=== PATIENT | female | born 1940 | race Caucasian/White ===

== ENCOUNTER 2022-11-29 10:04 | Inpatient (IN) ==
--- NOTE | 2022-11-29 10:16 | Emergency Department Note ---
HPI General Chief complaint: Abdominal Pain Stated complaint: abdominal pain Time Seen by Provider: 11/29/22 10:16 Source: EMS Mode of arrival: EMS Limitations: no limitations History of Present Illness HPI Narrative: Narrative: Patient is an 82-year-old female with a complex history who presents to the emergency department due to lower abdominal pain. She states that she recently had a lithotripsy performed by Dr. Sage. Today she began to develop more severe lower abdominal pain. She states that it feels like a dull ache. She denies any radiation of the pain. She denies palliative or provocative factors. She states that she feels unwell overall, but has difficulty describing what that means. She denies any other symptoms at this time. Related Data Home Medications Medication Instructions Recorded Confirmed levothyroxine 88 mcg capsule 88 mcg PO QDAY 05/09/22 11/23/22 aspirin 81 mg tablet,delayed 81 mg PO QDAY 11/23/22 11/23/22 release calcium 500 mg tablet 500 mg PO QDAY 11/23/22 11/23/22 Previous Rx's Medication Instructions Recorded lisinopril 30 mg tablet 30 mg PO DAILY #90 tabs 12/05/21 cpap machine with supplies #1 ea 06/22/22 venlafaxine 225 mg tablet,extended 225 mg PO QDAY #90 tabs 06/26/22 release 24 hr trazodone 50 mg tablet 50 mg PO QHS #90 tabs 09/25/22 meloxicam 15 mg tablet 15 mg PO QDAY #90 tabs 10/25/22 nitrofurantoin 100 mg PO Q12H 7 days #14 caps 11/27/22 monohydrate/macrocrystals 100 mg capsule (Macrobid) tramadol 50 mg tablet 75 mg PO Q6H PRN pain #20 tabs 11/27/22 simvastatin 20 mg tablet 20 mg PO HS #90 tabs 11/28/22 Allergies Allergy/AdvReac Type Severity Reaction Status Date / Time No Known Drug Allergies Allergy Verified 11/29/22 10:12 Review of Systems ROS ROS Narrative: Narrative: Constitutional: Reports other (General malaise); Denies fever or weakness Eyes: Denies eye pain or vision change ENT ED: Denies throat pain or rhinorrhea Cardiovascular: Denies chest pain, dyspnea on exertion, orthopnea or edema Respiratory: Denies shortness of breath or cough Gastrointestinal: Reports abdominal pain; Denies nausea, vomiting, diarrhea, constipation, hematochezia or melena Musculoskeletal: Denies back pain or myalgia Integumentary: Denies rash or lesions Neurological: Denies headache, weakness, numbness, confusion, abnormal gait or dizziness Endocrine: Denies fatigue or polyuria [facility] Narrative Patient History Narrative: Narrative: Medical/Surgical/Family History All Active Problems (Updated 11/29/22 @ 20:12 by Henry Flores MD) Sepsis secondary to UTI (Acute) Clinical sepsis (Acute) Stage 2 acute kidney injury (Acute) Obstructive sleep apnea on CPAP (Acute) Thoracic radiculopathy (Chronic) Lumbar spondylosis (Chronic) Hypothyroidism (Chronic) Degenerative joint disease (Chronic) Hypertension (Chronic) Esophageal reflux (Chronic) Hypercholesterolemia (Chronic) Essential tremor (Chronic) Type II diabetes mellitus (Chronic) History of surgery (Chronic) Hip bursitis, left (Chronic) Chronic left hip pain (Chronic) Asthma (Chronic) History of herniorrhaphy (Chronic) History of carpal tunnel release (Chronic) History of shoulder surgery (Chronic) Osteopenia (Chronic) Osteoarthritis involving multiple joints on both sides of body (Chronic) Diarrhea (Chronic) Skin lesion of left upper extremity (Chronic) Chronic kidney disease, stage 3 (Chronic) Calcaneal spur of right foot (Chronic) Obesity (Chronic) Other intervertebral disc degeneration, lumbar region (Chronic) Insomnia (Chronic) RODRÍGUEZ (obstructive sleep apnea) (Chronic) Depression, major, recurrent, moderate (Chronic) Adenomatous colon polyp (Chronic) History of colonoscopy (Chronic ~06/24/15) Diverticulosis (Chronic) Shingles (Chronic ~2015) History of repair of hiatal hernia (Chronic) S/P ERCP (Chronic) History of rectal sphincterotomy (Chronic) Radiculopathy of lumbar region (Chronic) PAC (premature atrial contraction) (Chronic) Polyarthralgia (Chronic) Radiculopathy of lumbar region (Acute) Spinal stenosis, lumbar region with neurogenic claudication (Chronic) Strain of cervical portion of right trapezius muscle (Acute) Muscle spasms of neck (Acute) Musculoskeletal back pain (Acute) 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) Left knee pain (Chronic) Myofascial pain (Acute) Flu vaccine need (Acute) Medicare annual wellness visit, initial (Acute) Chest pain (Chronic) Shoulder pain, bilateral (Acute) Lumbar back pain (Chronic) Increased skin sensation (Acute) Skin lesions (Acute) UTI (urinary tract infection) (Acute) Sleep apnea (Chronic) Heart murmur (Acute) Dizzy spells (Acute) Hematuria (Acute) Kidney stone (Acute) Medical History Adenomatous colon polyp Asthma Bursitis of right knee Calcaneal spur of right foot Chest pain Chronic kidney disease, stage 3 Chronic left hip pain Degenerative joint disease Degenerative joint disease of left knee Depression, major, recurrent, moderate Diarrhea 2/2 Coffee intake. Clears when she does not drink every morning Diverticulosis Dizzy spells Esophageal reflux Essential tremor Flu vaccine need Hematuria Hip bursitis, left Hypercholesterolemia Hypertension Hypothyroidism Increased skin sensation Groin Insomnia Left knee pain Lumbar back pain Lumbar spondylosis Medicare annual wellness visit, initial Medicare welcome visit Metatarsal stress fracture Distal left 3rd Muscle spasms of neck Musculoskeletal back pain Myofascial pain No known allergies Obesity RODRÍGUEZ (obstructive sleep apnea) Osteoarthritis involving multiple joints on both sides of body Osteopenia Other intervertebral disc degeneration, lumbar region PAC (premature atrial contraction) Noted on EKG 2019 Polyarthralgia Shingles (~2016) Shoulder pain, bilateral Skin lesion of left upper extremity LUE - upper arm. Unchanged over multiple years Skin lesions Spinal stenosis, lumbar region with neurogenic claudication Strain of cervical portion of right trapezius muscle Thoracic radiculopathy Type II diabetes mellitus UTI (urinary tract infection) Surgical History History of appendectomy (~1973) Ruptured appendix History of carpal tunnel release History of cholecystectomy History of colonoscopy (~06/24/15) History of herniorrhaphy Hiatal History of inguinal herniorrhaphy History of rectal sphincterotomy History of repair of hiatal hernia History of shoulder surgery History of surgery Trochanteric Bursa Injection at beside Right Greater Trochanteric Bursa Injection at bedside Right Greater Trochanteric Bursa Injection T12-L1 TAMIA #2 w/sed TESI #1 T12-L1, Right directed w/sed No Procedure-pain better TESI #2, T12-L1 & right greater trochanteric injection TESI #1, T12-L1 08/28/10 w/sed Right trochanteric bursa injection w/o sed S/P ERCP Family History Father Lung cancer Smoker Sister Arthritis Chronic pain Osteoporosis Mother Smoker COPD (chronic obstructive pulmonary disease) Social History Smoking Status: Never smoker Alcohol Intake Frequency: 0-2 drinks per day Substance Use: does not use Exam Narrative Narrative: Narrative: General Limitations: no limitations General appearance: Present alert and in no apparent distress; Absent anxious, appears intoxicated or sleepy Head Head: Present atraumatic and normocephalic Eye Eye: Present EOMI; Absent scleral icterus or nystagmus ENT ENT: Present mucous membranes moist; Absent nasal congestion Neck Neck: Present full ROM and trachea midline Chest Chest: Present normal inspection and symmetric chest wall rise Respiratory Respiratory: Present normal lung sounds bilaterally; Absent respiratory distress or accessory muscle use Cardiovascular Cardiovascular: Present regular rate, normal rhythm and normal heart sounds Adbominal Abdominal: Present soft, tenderness and normal bowel sounds; Absent distention, guarding, rebound or rigidity Extremities Extremities: Present normal inspection and full ROM Back Back: Present normal inspection and full ROM; Absent CVA tenderness (R) or CVA tenderness (L) Neurological Neurological: Present alert and oriented X3 Psychiatric Psychiatric: Present normal affect and normal mood Skin Skin: Present warm (WNL), dry and normal color Course Vital Signs Vital signs: Vital Signs Temperature 97.9 F 11/29/22 10:07 Pulse Rate 116 H 11/29/22 10:07 Respiratory Rate 11/29/22 10:07 Blood Pressure 137/87 11/29/22 10:07 Pulse Oximetry (%) 90 11/29/22 10:07 Oxygen Delivery Method Room Air 11/29/22 10:07 Temperature 97.9 F 11/29/22 10:07 Pulse Rate 108 H 11/29/22 19:37 Respiratory Rate 19 11/29/22 10:07 Blood Pressure 150/76 11/29/22 19:37 Pulse Oximetry (%) 98 11/29/22 19:37 Oxygen Delivery Method Nasal Cannula 11/29/22 18:01 Oxygen Flow Rate (L/min) 2 11/29/22 18:01 [facility] MDM Narrative Medical decision making narrative: Narrative: Patient is an 82-year-old female with a complex history who presents to the emergency department due to lower abdominal pain. Differential diagnoses include UTI, diverticulitis, colitis, and constipation. Patient's urine dip he is concerning for UTI with nitrate and leukocytes. Patient also has a leukocytosis. Given her leukocytosis with tachycardia that she presented with she meets SIRS criteria and with urine as a source meet sepsis criteria. Patient has received a dose of Zosyn. I have spoken to Dr. Pa about patient and he agrees to see and evaluate patient for admission. Lab Data 11/29/22 10:40 11/29/22 10:40 Labs: Lab Results 11/29/22 11/29/22 11/29/22 Range/Units 10:40 10:40 11:15 WBC 16.3 H (4.5-11.0) K/mcL RBC 4.28 (3.59-5.38) M/mcL Hgb 13.1 (11.2-15.7) g/dL Hct 42.2 (34.1-44.9) % MCV 98.6 (80.0-100.0) fL MCH 30.6 (26.0-34.0) pg MCHC 31.0 (31.0-36.0) g/dL RDW 14.5 (11.5-14.5) % Plt Count 238 (140-440) K/mcL MPV 9.4 (8.8-12.5) fL Immature Gran % (Auto) 0.6 H (0.0-0.5) % Neut % (Auto) 81.9 H (38.0-78.0) % Lymph % (Auto) 4.5 L (15.5-49.0) % [place] % (Auto) 12.7 H (1.0-12.0) % Eos % (Auto) 0.1 (0.0-7.0) % Baso % (Auto) 0.2 (0.0-2.0) % Lymph # (Auto) 0.74 L (1.50-4.80) K/mcL [place] # (Auto) 2.07 H (0.10-0.90) K/mcL Eos # (Auto) 0.01 (0.00-0.70) K/mcL Baso # (Auto) 0.04 (0.00-0.30) K/mcL Immature Gran # 0.10 H (0.00-0.05) K/mcl Absolute Neutrophils 13.34 H (1.80-8.00) K/mcL POC VBG pH (7.32-7.42) POC VBG pCO2 at Temp (41-51) POC VBG pO2 (25-40) POC VBG HCO3 (24-28) POC VBG Total CO2 (25-29) POC Venous O2 Sat (40-70) POC VBG Base Excess (-2-2) VBG Lactic Acid (0.5-2) Sodium 140 (133-145) mmol/L Potassium 4.3 (3.3-5.1) mmol/L Chloride 105 (96-108) mmol/L Carbon Dioxide 24 (22-30) mmol/L Anion Gap 11.0 (8.0-16.0) BUN 28 H (8-23) mg/dL Creatinine 3.1 H (0.6-1.1) mg/dL GFR Calculation 13 Glucose 114 H (70-105) mg/dL Calcium 8.5 L (8.6-10.4) mg/dL Total Bilirubin 0.9 (0.1-1.0) mg/dL AST 16 (<32) U/L ALT 7 (<40) U/L Alkaline Phosphatase 134 H (39-117) U/L Total Protein 6.5 (5.9-8.4) gm/dL Albumin 3.7 (3.2-5.2) gm/dL Globulin 2.8 (2.2-3.7) gm/dL Albumin/Globulin Ratio 1.3 (1.0-2.3) Lipase 10 (7-60) U/L Procalcitonin (<0.10) ng/mL Urine Color TNP Urine Appearance TNP Urine pH TNP Ur Specific [place] TNP Urine Protein TNP Urine Glucose (UA) TNP Urine Ketones TNP Urine Occult Blood TNP Urine Nitrate TNP Urine Bilirubin TNP Urine Urobilinogen TNP Ur Leukocyte Esterase TNP Ur Culture Indicated? TNP 11/29/22 11/29/22 Range/Units 12:32 12:42 WBC (4.5-11.0) K/mcL RBC (3.59-5.38) M/mcL Hgb (11.2-15.7) g/dL Hct (34.1-44.9) % MCV (80.0-100.0) fL MCH (26.0-34.0) pg MCHC (31.0-36.0) g/dL RDW (11.5-14.5) % Plt Count (140-440) K/mcL MPV (8.8-12.5) fL Immature Gran % (Auto) (0.0-0.5) % Neut % (Auto) (38.0-78.0) % Lymph % (Auto) (15.5-49.0) % [place] % (Auto) (1.0-12.0) % Eos % (Auto) (0.0-7.0) % Baso % (Auto) (0.0-2.0) % Lymph # (Auto) (1.50-4.80) K/mcL [place] # (Auto) (0.10-0.90) K/mcL Eos # (Auto) (0.00-0.70) K/mcL Baso # (Auto) (0.00-0.30) K/mcL Immature Gran # (0.00-0.05) K/mcl Absolute Neutrophils (1.80-8.00) K/mcL POC VBG pH 7.27 L (7.32-7.42) POC VBG pCO2 at Temp 53.2 H (41-51) POC VBG pO2 44 H (25-40) POC VBG HCO3 24.5 (24-28) POC VBG Total CO2 26.0 (25-29) POC Venous O2 Sat 73.0 H (40-70) POC VBG Base Excess -2.0 (-2-2) VBG Lactic Acid 0.7 (0.5-2) Sodium (133-145) mmol/L Potassium (3.3-5.1) mmol/L Chloride (96-108) mmol/L Carbon Dioxide (22-30) mmol/L Anion Gap (8.0-16.0) BUN (8-23) mg/dL Creatinine (0.6-1.1) mg/dL GFR Calculation Glucose (70-105) mg/dL Calcium (8.6-10.4) mg/dL Total Bilirubin (0.1-1.0) mg/dL AST (<32) U/L ALT (<40) U/L Alkaline Phosphatase (39-117) U/L Total Protein (5.9-8.4) gm/dL Albumin (3.2-5.2) gm/dL Globulin (2.2-3.7) gm/dL Albumin/Globulin Ratio (1.0-2.3) Lipase (7-60) U/L Procalcitonin 0.25 H (<0.10) ng/mL Urine Color Urine Appearance Urine pH Ur Specific [place] Urine Protein Urine Glucose (UA) Urine Ketones Urine Occult Blood Urine Nitrate Urine Bilirubin Urine Urobilinogen Ur Leukocyte Esterase Ur Culture Indicated? ED POC Tests ED POC Tests: LOKI - Influenza A Negative LOKI - Influenza B Negative [place]I - SARS Antigen Negative Discharge Plan Patient/Caregiver Discharge Instructions Pt seen by LEAKAGE TESTER/PA only: No Clinical Impression: Sepsis secondary to UTI Patient Disposition: Xfer As Inpt ([facility]) Follow up with: Juan Gonzalez MD [Primary Care Provider] - Prescriptions: No Action (DME) cpap machine with supplies See Rx Instructions .Route .MEDSUPPLY Qty: 1 0RF Rx Instructions: As directed venlafaxine 225 mg tablet extended release 24hr 225 mg PO QDAY Qty: 90 1RF trazodone 50 mg tablet 50 mg PO QHS Qty: 90 1RF meloxicam 15 mg tablet 15 mg PO QDAY Qty: 90 1RF simvastatin 20 mg tablet 20 mg PO HS Qty: 90 3RF lisinopril 30 mg tablet 30 mg PO DAILY Qty: 90 2RF levothyroxine 88 mcg capsule 88 mcg PO QDAY calcium 500 mg Tablet 500 mg PO QDAY aspirin 81 mg Tablet,Delayed Release (Dr/Ec) 81 mg PO QDAY nitrofurantoin monohyd/m-cryst [Macrobid] 100 mg capsule 100 mg PO Q12H 7 Days Qty: 14 0RF Rx Instructions: must administer with a meal/food tramadol 50 mg tablet 75 mg PO Q6H PRN (Reason: pain) Qty: 20 0RF
[2022-11-29] MEDS ORDERED: LACTATED RINGERS 1,000 ML IV ONE (10:30)
--- NOTE | 2022-11-29 10:57 | XRay Report ---
HISTORY: Hypoxia FINDINGS: Lung volumes are small due to poor inspiration. There is a horizontally oriented band of discoid atelectasis above the right diaphragm. There is no evidence of pneumonia, mass or congestive heart failure. Heart size is within normal limits. There is a stent in the region of the left renal pelvis and there are clips in the right upper quadrant. Comparison the prior exam from 07/04/07 shows the previously seen large hiatus hernia is no longer present. Lung volumes are smaller today than they had been. There is an old healed fracture of the right humeral head and there are two metal anchors in the head. IMPRESSION: Poor inspiration with discoid atelectasis in the right lower lobe Interpreted and Authenticated by: Hemant Rasmussen 11/29/22
[2022-11-29 11:43] LABS: Basophils # (Auto) 0.04 K/mcL (0.00-0.30); Basophils % (Auto) 0.2 % (0.0-2.0); Eosinophils # (Auto) 0.01 K/mcL (0.00-0.70); Eosinophils % (Auto) 0.1 % (0.0-7.0); Hematocrit 42.2 % (34.1-44.9); Hemoglobin 13.1 g/dL (11.2-15.7); Lymphocytes # (Auto) 0.74 K/mcL (1.50-4.80); Lymphocytes % (Auto) 4.5 % (15.5-49.0); Mean Cell Volume 98.6 fL (80.0-100.0); Mean Platelet Volume 9.4 fL (8.8-12.5); Monocytes # (Auto) 2.07 K/mcL (0.10-0.90); Monocytes % (Auto) 12.7 % (1.0-12.0); Neutrophils % (Auto) 81.9 % (38.0-78.0); Platelet Count 238 K/mcL (140-440); RBC 4.28 M/mcL (3.59-5.38); Red Cell Distribution Width 14.5 % (11.5-14.5); WBC 16.3 K/mcL (4.5-11.0)
[2022-11-29] MEDS ORDERED: PIPERACILLIN SODIUM/TAZOBACTAM 3.375 GM in DEXTROSE 5% IN WATER 50 ML IV ONE (12:06)
[2022-11-29 12:18] LABS: ALT/SGPT 7 U/L (<40); AST/SGOT 16 U/L (<32); Albumin 3.7 gm/dL (3.2-5.2); Albumin/Globulin Ratio 1.3 (1.0-2.3); Alkaline Phosphatase 134 U/L (39-117); Bilirubin,Total 0.9 mg/dL (0.1-1.0); Blood Urea Nitrogen 28 mg/dL (8-23); Calcium 8.5 mg/dL (8.6-10.4); Carbon Dioxide 24 mmol/L (22-30); Chloride 105 mmol/L (96-108); Globulin 2.8 gm/dL (2.2-3.7); Glomerular Filtration Rate 13; Glucose 114 mg/dL (70-105)
[2022-11-29] MEDS ORDERED: IPRATROPIUM/ALBUTEROL 3 ML AMPUL.NEB NEB ONE (14:14)
[2022-11-29] MEDS ORDERED: 0.9 % SODIUM CHLORIDE 500 ML IV ONE (14:14)
--- NOTE | 2022-11-29 14:20 | Cat Scan Report ---
History: Abdominal pain, urinary tract infection, recent lithotripsy two days ago TECHNIQUE: Patient was imaged without contrast in axial plane at 2.5 mm intervals from above the diaphragm through the symphysis pubis. Sagittal and coronal reformats were created. The radiation exposure was limited using dose reduction technology. FINDINGS: There are moderate-sized bands of atelectasis in both lung bases. These are new since 11/02/22. There are tiny bilateral pleural effusions which are also new. There is a small hiatus hernia. A row surgical sutures are present around the cardia the stomach. Evaluation of the abdominal organs without contrast is somewhat limited. The liver and spleen are normal in size and homogeneous. The gallbladder has been removed. The bile ducts are nondilated. No abnormality seen within the pancreas. There is a duodenal diverticulum along the medial side of the second portion which contains fluid and air. There is no surrounding inflammation. The stomach and small intestine are otherwise normal. There are multiple diverticula in the descending and sigmoid colon but without evidence of acute diverticulitis or bowel obstruction. The adrenals are normal. The right kidney is normal in size shape and contour. Patient has a double pigtail left ureteral stent. The proximal and is located in the upper pole infundibulum in the distal end is in the lumen of the bladder. There are numerous kidney stone fragments located in the inferior portion left renal pelvis, lower pole infundibulum and lower pole calyces. There was a larger more well-circumscribed solitary stone seen in the left renal pelvis on 11/02/22. This stone has been partially fragmented. There is stranding of the perirenal fat which has increased since the prior study. Patient also has a band of tissue in the pararenal space adjacent to the Gerota's fascia which is new. It is irregular in contour. The greatest thickening is located anterior to the lower pole measures 2.4 cm. This may be a hematoma. There is no urinoma surrounding the kidney. The ureters decompressed and there are no stone fragments within the ureter nor the decompressed urinary bladder. The uterus is atrophic. There is degenerative disc disease and arthritis throughout the lumbar spine and lower thoracic spine. IMPRESSION: Moderate-sized pararenal fluid collection around the left kidney which may be hemorrhage following the recent lithotripsy. Fragmented stones in the lower portion of the left kidney, without evidence of hydronephrosis. Well-positioned left ureteral stent New onset bibasilar atelectasis Diverticulosis without diverticulitis Dr. Flores was called with the report Interpreted and Authenticated by: Hemant Rasmussen 11/29/22
--- NOTE | 2022-11-29 17:35 | Internal Med History&Physical ---
HPI History of Present Illness Patient information: Note initiated : 11/29/22 at 5:33 pm Service Date, if different from initiated Date: [] Patient: Adriane Olivares 82 y/o F admitted on for abdominal pain. Chief Complaint: [abdominal pain] Chief complaint: abdominal pain History of present illness: Ms. Olivares is a 82 year old F history of essential hypertensions, dyslipidemia, depression, obstructive sleep apnea on CPAP, hypothyroidism, presenting with abdominal pain. She had a history of recurrent urinary tract infections as well as kidney stone. She received the procedures of left lithotripsy by Dr. Sage urologist 2 days ago on 11/27/22. During her follow-up with Dr. Sage today, he told patients that she was septic and prompted her to come to our ED for further evaluations. Patient is committing of left lower quadrant abdominal pain since the procedures. She said that right now the pain is deep and moderate at rest but it was exacerbated by urinations. She denies any back pain. She is also complaining of dysuria. She denies any fever chills or diaphoresis. She denies any GI upset such as nausea vomiting or diarrhea. Vital signs significant for tachycardia with heart rate up to the 1 teens at ED presentations. Labs significant for leukocytosis with WBC 16.3. Serum lactic acid 0.7. Procalcitonin level 0.25. Serum creatinine level 3.1 with baseline 1.0. UA suggesting the presence of urinary tract infections. Chest x-ray unremarkable. Abdomen pelvis CT showing fragmented stones in the lower portion of the left kidney without evidence of hydronephrosis. Admission request is called for urinary tract infections with sepsis as well as acute kidney injury. Constitutional Constitutional: Absent chills, excessive sweating, fatigue, fever(s) or weakness EENT Eyes: Absent blurry vision, change in vision, loss of vision or other visual disturbances Ears: Absent decreased hearing or tinnitus Nose, mouth and throat: Absent abnormal hearing, dry mouth, headache(s), nasal congestion or sore throat Cardiovascular Cardiovascular: Absent chest pain, chest pain at rest, edema, irregular heart rhythm or palpatations Respiratory Respiratory: Absent cough, dyspnea or wheezing Gastrointestinal Gastrointestinal: Present abdominal pain; Absent constipation, diarrhea, nausea or vomiting Genitourinary Genitourinary: Present dysuria Musculoskeletal Musculoskeletal: Absent back pain, deformity, limited range of motion, muscle cramps, muscle weakness or numbness Integumentary Integumentary: Absent lesions, rash or wounds Neurological Neurological: Absent focal weakness, headache(s) or numbness Psychiatric Psychiatric: Absent anxiety, depression or hallucinations PFSH PFSH All Active Problems (Updated 11/29/22 @ 17:41 by Bubba Pa MD) Clinical sepsis (Acute) Stage 2 acute kidney injury (Acute) Obstructive sleep apnea on CPAP (Acute) Thoracic radiculopathy (Chronic) Lumbar spondylosis (Chronic) Hypothyroidism (Chronic) Degenerative joint disease (Chronic) Hypertension (Chronic) Esophageal reflux (Chronic) Hypercholesterolemia (Chronic) Essential tremor (Chronic) Type II diabetes mellitus (Chronic) History of surgery (Chronic) Hip bursitis, left (Chronic) Chronic left hip pain (Chronic) Asthma (Chronic) History of herniorrhaphy (Chronic) History of carpal tunnel release (Chronic) History of shoulder surgery (Chronic) Osteopenia (Chronic) Osteoarthritis involving multiple joints on both sides of body (Chronic) Diarrhea (Chronic) Skin lesion of left upper extremity (Chronic) Chronic kidney disease, stage 3 (Chronic) Calcaneal spur of right foot (Chronic) Obesity (Chronic) Other intervertebral disc degeneration, lumbar region (Chronic) Insomnia (Chronic) RODRÍGUEZ (obstructive sleep apnea) (Chronic) Depression, major, recurrent, moderate (Chronic) Adenomatous colon polyp (Chronic) History of colonoscopy (Chronic ~06/24/15) Diverticulosis (Chronic) Shingles (Chronic ~2016) History of repair of hiatal hernia (Chronic) S/P ERCP (Chronic) History of rectal sphincterotomy (Chronic) Radiculopathy of lumbar region (Chronic) PAC (premature atrial contraction) (Chronic) Polyarthralgia (Chronic) Radiculopathy of lumbar region (Acute) Spinal stenosis, lumbar region with neurogenic claudication (Chronic) Strain of cervical portion of right trapezius muscle (Acute) Muscle spasms of neck (Acute) Musculoskeletal back pain (Acute) 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) Left knee pain (Chronic) Myofascial pain (Acute) Flu vaccine need (Acute) Medicare annual wellness visit, initial (Acute) Chest pain (Chronic) Shoulder pain, bilateral (Acute) Lumbar back pain (Chronic) Increased skin sensation (Acute) Skin lesions (Acute) UTI (urinary tract infection) (Acute) Sleep apnea (Chronic) Heart murmur (Acute) Dizzy spells (Acute) Hematuria (Acute) Kidney stone (Acute) Medical History Adenomatous colon polyp Asthma Bursitis of right knee Calcaneal spur of right foot Chest pain Chronic kidney disease, stage 3 Chronic left hip pain Degenerative joint disease Degenerative joint disease of left knee Depression, major, recurrent, moderate Diarrhea 2/2 Coffee intake. Clears when she does not drink every morning Diverticulosis Dizzy spells Esophageal reflux Essential tremor Flu vaccine need Hematuria Hip bursitis, left Hypercholesterolemia Hypertension Hypothyroidism Increased skin sensation Groin Insomnia Left knee pain Lumbar back pain Lumbar spondylosis Medicare annual wellness visit, initial Medicare welcome visit Metatarsal stress fracture Distal left 3rd Muscle spasms of neck Musculoskeletal back pain Myofascial pain No known allergies Obesity RODRÍGUEZ (obstructive sleep apnea) Osteoarthritis involving multiple joints on both sides of body Osteopenia Other intervertebral disc degeneration, lumbar region PAC (premature atrial contraction) Noted on EKG 2018 Polyarthralgia Shingles (~2015) Shoulder pain, bilateral Skin lesion of left upper extremity LUE - upper arm. Unchanged over multiple years Skin lesions Spinal stenosis, lumbar region with neurogenic claudication Strain of cervical portion of right trapezius muscle Thoracic radiculopathy Type II diabetes mellitus UTI (urinary tract infection) Surgical History History of appendectomy (~1973) Ruptured appendix History of carpal tunnel release History of cholecystectomy History of colonoscopy (~06/24/15) History of herniorrhaphy Hiatal History of inguinal herniorrhaphy History of rectal sphincterotomy History of repair of hiatal hernia History of shoulder surgery History of surgery Trochanteric Bursa Injection at beside Right Greater Trochanteric Bursa Injection at bedside Right Greater Trochanteric Bursa Injection T12-L1 TAMIA #2 w/sed TESI #1 T12-L1, Right directed w/sed No Procedure-pain better TESI #2, T12-L1 & right greater trochanteric injection TESI #1, T12-L1 08/28/10 w/sed Right trochanteric bursa injection w/o sed S/P ERCP Family History Father Lung cancer Smoker Sister Arthritis Chronic pain Osteoporosis Mother Smoker COPD (chronic obstructive pulmonary disease) Social History marital status: smoking status: Never smoker alcohol intake frequency: 0-2 drinks per day substance use type: does not use seatbelt use: always MEDS/ALLERGIES Home Medications and Allergies Home Medications Medication Instructions Recorded Confirmed Type lisinopril 30 mg tablet 30 mg PO DAILY #90 tabs 12/05/21 11/23/22 Rx levothyroxine 88 mcg capsule 88 mcg PO QDAY 05/09/22 11/23/22 History cpap machine with supplies #1 ea 06/22/22 11/29/22 Rx venlafaxine 225 mg tablet,extended 225 mg PO QDAY #90 tabs 06/26/22 11/23/22 Rx release 24 hr trazodone 50 mg tablet 50 mg PO QHS #90 tabs 09/25/22 11/23/22 Rx meloxicam 15 mg tablet 15 mg PO QDAY #90 tabs 10/25/22 11/23/22 Rx aspirin 81 mg tablet,delayed 81 mg PO QDAY 11/23/22 11/23/22 History release calcium 500 mg tablet 500 mg PO QDAY 11/23/22 11/23/22 History nitrofurantoin 100 mg PO Q12H 7 days #14 caps 11/27/22 Rx monohydrate/macrocrystals 100 mg capsule (Macrobid) tramadol 50 mg tablet 75 mg PO Q6H PRN pain #20 tabs 11/27/22 Rx simvastatin 20 mg tablet 20 mg PO HS #90 tabs 11/28/22 11/29/22 Rx Allergies Allergy/AdvReac Type Severity Reaction Status Date / Time No Known Drug Allergies Allergy Verified 11/29/22 10:12 EXAM Constitutional Vitals: Temp Pulse Resp BP Pulse Ox O2 Del Method O2 Flow Rate 36.6 C 108 H 19 144/123 97 Nasal Cannula 2 11/29/22 10:07 11/29/22 15:48 11/29/22 10:07 11/29/22 15:48 11/29/22 15:48 11/29/22 13:47 11/29/22 13:47 General appearance: cooperative and no acute distress Head Head exam: Present atraumatic and normocephalic Eye Eye exam: Present EOMI and PERRL ENT ENT exam: Present mucous membranes moist, normal exam and normal external ear exam Neck Neck exam: Present normal inspection; Absent lymphadenopathy, tenderness or thyromegaly Respiratory Respiratory exam: Absent accessory muscle use, respiratory distress or wheezes Cardiovascular Cardiovascular exam: Present systolic murmur and tachycardia; Absent JVD GI/Abdominal GI/Abdominal exam: Present normal bowel sounds, soft and tenderness; Absent organomegaly Extremities Exam Extremities exam: Present full ROM, normal capillary refill and normal inspection; Absent tenderness Neurological Exam Neurological exam: Present alert, CN II-XII intact and oriented X3; Absent motor sensory deficit Psychiatric Psychiatric exam: Present normal affect and normal mood; Absent anxious or depressed Skin Skin exam: Present dry and intact DATA Data Completed and Pending Labs: Labs from last 24 hours 11/29/22 11/29/22 11/29/22 12:42 12:32 11:15 WBC RBC Hgb Hct MCV MCH MCHC RDW Plt Count MPV Immature Gran % (Auto) Neut % (Auto) Lymph % (Auto) [place] % (Auto) Eos % (Auto) Baso % (Auto) Lymph # (Auto) [place] # (Auto) Eos # (Auto) Baso # (Auto) Immature Gran # Absolute Neutrophils POC VBG pH 7.27 L POC VBG pCO2 at Temp 53.2 H POC VBG pO2 44 H POC VBG HCO3 24.5 POC VBG Total CO2 26.0 POC Venous O2 Sat 73.0 H POC VBG Base Excess -2.0 VBG Lactic Acid 0.7 Sodium Potassium Chloride Carbon Dioxide Anion Gap BUN Creatinine GFR Calculation Glucose Calcium Total Bilirubin AST ALT Alkaline Phosphatase Total Protein Albumin Globulin Albumin/Globulin Ratio Lipase Procalcitonin 0.25 H Urine Color TNP Urine Appearance TNP Urine pH TNP Ur Specific Alpha TNP Urine Protein TNP Urine Glucose (UA) TNP Urine Ketones TNP Urine Occult Blood TNP Urine Nitrate TNP Urine Bilirubin TNP Urine Urobilinogen TNP Ur Leukocyte Esterase TNP Ur Culture Indicated? TNP 11/29/22 11/29/22 10:40 10:40 WBC 16.3 H RBC 4.28 Hgb 13.1 Hct 42.2 MCV 98.6 MCH 30.6 MCHC 31.0 RDW 14.5 Plt Count 238 MPV 9.4 Immature Gran % (Auto) 0.6 H Neut % (Auto) 81.9 H Lymph % (Auto) 4.5 L [place] % (Auto) 12.7 H Eos % (Auto) 0.1 Baso % (Auto) 0.2 Lymph # (Auto) 0.74 L [place] # (Auto) 2.07 H Eos # (Auto) 0.01 Baso # (Auto) 0.04 Immature Gran # 0.10 H Absolute Neutrophils 13.34 H POC VBG pH POC VBG pCO2 at Temp POC VBG pO2 POC VBG HCO3 POC VBG Total CO2 POC Venous O2 Sat POC VBG Base Excess VBG Lactic Acid Sodium 140 Potassium 4.3 Chloride 105 Carbon Dioxide 24 Anion Gap 11.0 BUN 28 H Creatinine 3.1 H GFR Calculation 13 Glucose 114 H Calcium 8.5 L Total Bilirubin 0.9 AST 16 ALT 7 Alkaline Phosphatase 134 H Total Protein 6.5 Albumin 3.7 Globulin 2.8 Albumin/Globulin Ratio 1.3 Lipase 10 Procalcitonin Urine Color Urine Appearance Urine pH Ur Specific Alpha Urine Protein Urine Glucose (UA) Urine Ketones Urine Occult Blood Urine Nitrate Urine Bilirubin Urine Urobilinogen Ur Leukocyte Esterase Ur Culture Indicated? A/P Assessment and plan (1) Hypothyroidism: Status: Chronic Qualifiers: Hypothyroidism type: unspecified Qualified Code(s): E03.9 - Hypothyroidism, unspecified (2) Hypertension: Status: Chronic Qualifiers: Hypertension type: essential hypertension Qualified Code(s): I10 - Essential (primary) hypertension (3) Obstructive sleep apnea on CPAP: Status: Acute (4) Depression, major, recurrent, moderate: Status: Chronic (5) Hypercholesterolemia: Status: Chronic (6) Stage 2 acute kidney injury: Status: Acute (7) UTI (urinary tract infection): Status: Acute (8) Clinical sepsis: Status: Acute Narrative A/P Narrative: Assessment and Plans: 1. UTI with clinical sepsis: Inpatient med surg CT abdomen pelvis does not see any other complications such as obstructive stones, abscess, hydranephrosis s/p IV fluid bolus both LR and NS in the ED, to be followed by NS@100cc/hr Serial lactic acid Procalcitonin level Blood culture Urine culture cbc w/ auto diff in the morning to trend WBC Rocephin 2. Stage 2 acute kidney injury: Avoid nephrotoxic agents and hold Lisinopril s/p IV fluid bolus both LR and NS in the ED, to be followed by NS@100cc/hr CMP in the morning to trend kidney functions 3. Essential hypertension: Hold Lisinopril, do Amlodipine instead Hydralazine 10mg IV q4-6hr PRN SBP>=180 and/or DBP>=110mmHg 4. Hypercholesterolemia: Continue statin therapy 5. Hypothyroidism: Continue thyroid replacement therapy 6. Obstructive sleep apnea: Continue CPAP at night while sleeping 7. Depression: Venlafaxine GI ppx: not currently indicated DVT ppx: Heparin Code status: Full Prognosis: guarded Disposition: inpatient med surg Time Spent With Patient Time: Total time spent is greater than 50% in coordination of care (as documented) at patient's floor/unit and/or counseling patient: Initial: Total time with patient: 55 - 74 minutes
[2022-11-29] MEDS ORDERED: morphine 4 MG/ML VIAL IV PRN (21:09)
[2022-11-29] MEDS ORDERED: cefTRIAXone 1 GM in DEXTROSE 5% IN WATER 50 ML IV SCH (21:09)
[2022-11-29] MEDS ORDERED: IPRATROPIUM/ALBUTEROL 3 ML AMPUL.NEB NEB PRN (21:09)
[2022-11-29] MEDS ORDERED: hydrALAZINE 20 MG/ML VIAL IV PRN (21:09)
[2022-11-29] MEDS ORDERED: traZODone HCL 50 MG TABLET PO PRN (21:09)
[2022-11-29] MEDS ORDERED: HEPARIN 5,000 UNIT/ML VIAL SQ SCH (21:09)
[2022-11-29] MEDS ORDERED: ONDANSETRON 4 MG/2 ML VIAL IV PRN (21:09)
[2022-11-29] MEDS ORDERED: oxyCODONE HCL 5 MG TABLET PO PRN (21:09)
[2022-11-29] MEDS: 0.9 % SODIUM CHLORIDE 1,000 ML IV SCH (22:07)
[2022-11-29] MEDS: SENNOSIDES 1 TABLET PO SCH (22:08)
[2022-11-29] MEDS: DOCUSATE SODIUM 100 MG CAPSULE PO SCH (22:08)
[2022-11-29] MEDS: 0.9 % SODIUM CHLORIDE 10 ML SYRINGE IV SCH (22:09)
[2022-11-29] MEDS: amLODIPine 10 MG TABLET PO SCH (23:50)
[2022-11-29] MEDS: cefTRIAXone 1 GM VIAL IV SCH (23:50)
[2022-11-29] MEDS ORDERED: amLODIPine 5 MG TABLET ONE (23:55)
[2022-11-30] MEDS: 0.9 % SODIUM CHLORIDE 10 ML SYRINGE IV SCH ×3 (05:42→21:32)
[2022-11-30 07:32] LABS: Basophils # (Auto) 0.04 K/mcL (0.00-0.30); Basophils % (Auto) 0.3 % (0.0-2.0); Eosinophils # (Auto) 0.12 K/mcL (0.00-0.70); Hematocrit 39.8 % (34.1-44.9); Hemoglobin 12.2 g/dL (11.2-15.7); Lymphocytes # (Auto) 0.95 K/mcL (1.50-4.80); Lymphocytes % (Auto) 7.7 % (15.5-49.0); Mean Corpuscular HGB Conc 30.7 g/dL (31.0-36.0); Mean Platelet Volume 9.6 fL (8.8-12.5); Monocytes # (Auto) 1.65 K/mcL (0.10-0.90); Monocytes % (Auto) 13.3 % (1.0-12.0); Neutrophils % (Auto) 77.2 % (38.0-78.0); Platelet Count 225 K/mcL (140-440); RBC 4.02 M/mcL (3.59-5.38); Red Cell Distribution Width 14.3 % (11.5-14.5); WBC 12.4 K/mcL (4.5-11.0)
[2022-11-30] MEDS: 0.9 % SODIUM CHLORIDE 1,000 ML IV SCH ×2 (07:54→19:50)
[2022-11-30 08:20] LABS: ALT/SGPT 7 U/L (<40); AST/SGOT 15 U/L (<32); Albumin 3.2 gm/dL (3.2-5.2); Albumin/Globulin Ratio 1.1 (1.0-2.3); Alkaline Phosphatase 127 U/L (39-117); Bilirubin,Total 0.7 mg/dL (0.1-1.0); Blood Urea Nitrogen 29 mg/dL (8-23); Calcium 8.2 mg/dL (8.6-10.4); Carbon Dioxide 25 mmol/L (22-30); Chloride 104 mmol/L (96-108); Globulin 2.8 gm/dL (2.2-3.7); Glomerular Filtration Rate 14; Glucose 101 mg/dL (70-105)
[2022-11-30] MEDS: DOCUSATE SODIUM 100 MG CAPSULE PO SCH ×3 (08:33→21:30)
[2022-11-30] MEDS: cefTRIAXone 1 GM VIAL IV SCH (08:33)
[2022-11-30] MEDS: amLODIPine 10 MG TABLET PO SCH (08:33)
[2022-11-30 09:24] LABS: Appearance,Urine HAZY (Clear); Bilirubin,Urine Negative (Negative); Color,Urine RED; Culture Indicated,Urine yes; Glucose,Urine (UA) Negative (Negative); Ketones,Urine 20 mg/dL (Negative); Leukocyte Esterase,Urine 250 /uL (Negative); Mucus,Urine FEW /hpf; Nitrate,Urine Negative (Negative); Protein,Urine 100 mg/dL (Negative); Specific Gravity,Urine 1.014 (1.000-1.035); Urine Blood >=1.0 mg/dL (Negative); Urine RBC > 182 /hpf (0-1); Urine Squamous Epithelial Cell 0 /hpf (0-4); Urine WBC 55 /hpf (0-4); Urobilinogen,Urine Negative
--- NOTE | 2022-11-30 14:36 | Internal Med Progress Note ---
SUBJECTIVE Subjective Patient information: Note initiated : 11/30/22 at 2:32 pm Service Date, if different from initiated Date: [] Patient: Adriane Olivares 82 y/o F admitted on 11/29/22 for abdominal pain. Chief Complaint: [] Interval history: Ms. Olivares is a 82 year old F history of essential hypertensions, dyslipidemia, depression, obstructive sleep apnea on CPAP, hypothyroidism, presenting with abdominal pain. She had a history of recurrent urinary tract infections as well as kidney stone. She received the procedures of left lithotripsy by Dr. Sage urologist 2 days ago on 11/27/22. During her follow-up with Dr. Sage today, he told patients that she was septic and prompted her to come to our ED for further evaluations. Patient is committing of left lower quadrant abdominal pain since the procedures. She said that right now the pain is deep and moderate at rest but it was exacerbated by urinations. She denies any back pain. She is also complaining of dysuria. She denies any fever chills or diaphoresis. She denies any GI upset such as nausea vomiting or diarrhea. Vital signs significant for tachycardia with heart rate up to the 1 teens at ED presentations. Labs significant for leukocytosis with WBC 16.3. Serum lactic acid 0.7. Procalcitonin level 0.25. Serum creatinine level 3.1 with baseline 1.0. UA suggesting the presence of urinary tract infections. Chest x-ray unremarkable. Abdomen pelvis CT showing fragmented stones in the lower portion of the left kidney without evidence of hydronephrosis. Admission request is called for urinary tract infections with sepsis as well as acute kidney injury. 11/30: Low-grade fever Tmax 37.3 overnight. WBC went down from 16.3 at time of admissions to 12.4 this morning. Serum creatinine level 2.9, down from 3.1 at time of admission. Blood and urine culture no growth today. Patient is continue to have pink urine. She is complaining of mild to moderate left-sided abdominal pain. She denies any nausea or vomiting. She denies any fever or chills. She is complaining of dysuria. Continue Rocephin for urinary tract infections while monitoring culture results. Continue normal saline at 100 cc/h while monitoring kidney functions. Constitutional Vitals: Vital Signs Temp Pulse Resp BP Pulse Ox O2 Del Method O2 Flow Rate 36.6 C 105 H 20 156/83 98 Nasal Cannula 1 11/30/22 08:00 11/30/22 08:00 11/30/22 08:00 11/30/22 08:00 11/30/22 08:00 11/30/22 08:00 11/30/22 08:00 Period Temp Pulse Resp BP Sys/[place] Pulse Ox O2 Del Method O2 Flow Rate Last 24 Hr 36.6 C-37.3 C 49-108 16-20 122-156/65-123 90-98 Nasal Cannula- Room Air 1-2 Intake and Output 11/30/22 11/30/22 11/30/22 03:59 11:59 19:59 Intake Total 1480 Output Total 107 650 101 Balance -107 830 -101 Weight 82.696 kg 82.696 kg Patient Weight 12/01/22 03:59 Weight 82.696 kg Intake & Output: Intake & Output 11/30/22 11/30/22 11/30/22 03:59 11:59 19:59 Intake Total 1480 Output Total 107 650 101 Balance -107 830 -101 Weight 82.696 kg 82.696 kg Intake: IV 1000 Sodium Chloride 0.9% 1,000 ml @ 1000 100 mls/hr IV .Q10H DEL Rx#: [id number] Oral 480 Output: Void Amount 100 650 100 # of times incontinent of urine 7 1 Other: Meal Breakfast Percent of Meal Consumed 50% Feeding Ability Independent Urine Appearance Hematuria Hematuria Hematuria Urine Color Medium Red Light Red Yellow Light Red Urine Odor Normal Head Head exam: Present atraumatic and normal inspection Eye Eye exam: Present normal appearance ENT ENT exam: Present mucous membranes moist, normal exam and normal external ear exam Neck Neck exam: Present normal inspection Respiratory Respiratory exam: Present normal respiratory exam Cardiovascular Cardiovascular exam: Present normal rate and rhythm GI/Abdominal GI/Abdominal exam: Present normal bowel sounds and tenderness Additional comments: [place] urine Back Exam Back exam: Present normal inspection Neurological Exam Neurological exam: Present alert and oriented X3 Skin Skin exam: Present intact and warm OBJ DATA Labs 11/30/22 05:41 11/30/22 05:41 Labs: Abnormal Lab Results 11/30/22 11/30/22 11/30/22 08:00 05:41 05:41 WBC 12.4 H MCHC 30.7 L Immature Gran % (Auto) Neut % (Auto) Lymph % (Auto) 7.7 L [place] % (Auto) 13.3 H Lymph # (Auto) 0.95 L [place] # (Auto) 1.65 H Immature Gran # 0.06 H Absolute Neutrophils 9.57 H POC VBG pH POC VBG pCO2 at Temp POC VBG pO2 POC Venous O2 Sat BUN 29 H Creatinine 2.9 H Glucose Calcium 8.2 L Alkaline Phosphatase 127 H Procalcitonin Urine Appearance Hazy A Urine Protein 100 A Urine Ketones 20 A Urine Occult Blood >=1.0 A Ur Leukocyte Esterase 250 A Urine RBC > 182 H Urine WBC 55 H Urine Mucus Few A 11/29/22 11/29/22 11/29/22 12:42 12:32 10:40 WBC MCHC Immature Gran % (Auto) Neut % (Auto) Lymph % (Auto) [place] % (Auto) Lymph # (Auto) [place] # (Auto) Immature Gran # Absolute Neutrophils POC VBG pH 7.27 L POC VBG pCO2 at Temp 53.2 H POC VBG pO2 44 H POC Venous O2 Sat 73.0 H BUN 28 H Creatinine 3.1 H Glucose 114 H Calcium 8.5 L Alkaline Phosphatase 134 H Procalcitonin 0.25 H Urine Appearance Urine Protein Urine Ketones Urine Occult Blood Ur Leukocyte Esterase Urine RBC Urine WBC Urine Mucus 11/29/22 10:40 WBC 16.3 H MCHC Immature Gran % (Auto) 0.6 H Neut % (Auto) 81.9 H Lymph % (Auto) 4.5 L [place] % (Auto) 12.7 H Lymph # (Auto) 0.74 L [place] # (Auto) 2.07 H Immature Gran # 0.10 H Absolute Neutrophils 13.34 H POC VBG pH POC VBG pCO2 at Temp POC VBG pO2 POC Venous O2 Sat BUN Creatinine Glucose Calcium Alkaline Phosphatase Procalcitonin Urine Appearance Urine Protein Urine Ketones Urine Occult Blood Ur Leukocyte Esterase Urine RBC Urine WBC Urine Mucus Meds: Medications Acetaminophen (Acetaminophen 325 Mg Tablet) 650 mg PO Q6HP PRN; Protocol PRN Reason: Per Pain Protocol/Fever > 101 Albuterol/Ipratropium (Ipratropium/Albuterol 3 Ml Ampul.Neb) 3 ml NEB Q4HRT PRN PRN Reason: Wheezing Amlodipine Besylate (Amlodipine 10 Mg Tablet) 10 mg PO DAILY DEL Last Admin: 11/30/22 08:33 Dose: 10 mg Ceftriaxone Sodium (Ceftriaxone 1 Gm Vial) 1 gm IV Q24H [facility] Last Admin: 11/30/22 08:33 Dose: 1 gm Docusate Sodium (Docusate Sodium 100 Mg Capsule) 100 mg PO BID [facility] Last Admin: 11/30/22 08:33 Dose: 100 mg Hydralazine HCl (Hydralazine 20 Mg/Ml Vial) 10 mg IV Q4-6HP PRN PRN Reason: Hypertension Sodium Chloride (Sodium Chloride 0.9%) 1,000 mls @ 100 mls/hr IV .Q10H [facility] Last Admin: 11/30/22 07:54 Dose: 100 mls/hr Morphine Sulfate (Morphine 4 Mg/Ml Vial) 4 mg IV Q4HP PRN; Protocol PRN Reason: Per Pain Protocol Ondansetron HCl (Ondansetron 4 Mg/2 Ml Vial) 4 mg IV Q6HP PRN PRN Reason: Nausea And Vomiting Oxycodone HCl (Oxycodone Hcl 5 Mg Tablet) 5 mg PO Q4HP PRN; Protocol PRN Reason: Per Pain Protocol Senna (Sennosides 1 Tablet) 2 tab PO HS [facility] Last Admin: 11/29/22 22:08 Dose: Not Given Sodium Chloride (0.9 % Sodium Chloride 10 Ml Syringe) 10 ml IV Q8 [facility] Last Admin: 11/30/22 13:59 Dose: Not Given Trazodone HCl (Trazodone Hcl 50 Mg Tablet) 25 mg PO HSP PRN PRN Reason: Insomnia A/P Assessment and plan (1) Hypothyroidism: Status: Chronic Qualifiers: Hypothyroidism type: unspecified Qualified Code(s): E03.9 - Hypothyroidism, unspecified (2) Hypertension: Status: Chronic Qualifiers: Hypertension type: essential hypertension Qualified Code(s): I10 - Essential (primary) hypertension (3) Obstructive sleep apnea on CPAP: Status: Acute (4) Depression, major, recurrent, moderate: Status: Chronic (5) Hypercholesterolemia: Status: Chronic (6) Stage 2 acute kidney injury: Status: Acute (7) UTI (urinary tract infection): Status: Acute (8) Clinical sepsis: Status: Acute Narrative A/P Narrative: Assessment and Plans: 1. UTI with clinical sepsis: Inpatient med surg CT abdomen pelvis does not see any other complications such as obstructive stones, abscess, hydranephrosis s/p IV fluid bolus both LR and NS in the ED, to be followed by NS@100cc/hr Serial lactic acid 0.7 Procalcitonin level 0.25 Blood culture, no growth to date Urine culture, no growth to date cbc w/ auto diff in the morning to trend WBC Rocephin 2. Stage 2 acute kidney injury: Avoid nephrotoxic agents and hold Lisinopril s/p IV fluid bolus both LR and NS in the ED, to be followed by NS@100cc/hr CMP in the morning to trend kidney functions 3. Essential hypertension: Hold Lisinopril, do Amlodipine instead Hydralazine 10mg IV q4-6hr PRN SBP>=180 and/or DBP>=110mmHg 4. Hypercholesterolemia: Continue statin therapy 5. Hypothyroidism: Continue thyroid replacement therapy 6. Obstructive sleep apnea: Continue CPAP at night while sleeping 7. Depression: Venlafaxine GI ppx: not currently indicated DVT ppx: Heparin Code status: Full Prognosis: guarded Disposition: inpatient med surg Time Spent With Patient Time: Total time spent is greater than 50% in coordination of care (as documented) at patient's floor/unit and/or counseling patient: Subsequent: Total time with patient: 35 - 49 minutes QUALITY Stroke Symptom Onset Unknown: No VTE Deep Vein Thrombosis/Pulmonary Embolism Present on Admission: No
[2022-11-30] MEDS ORDERED: traMADol 50 MG TABLET PO PRN (14:41)
[2022-11-30] MEDS: SENNOSIDES 1 TABLET PO SCH ×2 (21:14→21:30)
[2022-11-30] MEDS: SIMVASTATIN 20 MG TABLET PO SCH (21:24)
[2022-11-30] MEDS: traZODone HCL 50 MG TABLET PO SCH (21:25)
[2022-11-30] MEDS: ACETAMINOPHEN 325 MG TABLET PO PRN (21:25)
[2022-12-01] MEDS: 0.9 % SODIUM CHLORIDE 1,000 ML IV SCH ×2 (05:44→17:15)
[2022-12-01] MEDS: 0.9 % SODIUM CHLORIDE 10 ML SYRINGE IV SCH ×3 (05:44→22:02)
[2022-12-01] MEDS: CALCIUM (OYSTER SHELL) 500 MG TABLET PO SCH (08:23)
[2022-12-01] MEDS: DOCUSATE SODIUM 100 MG CAPSULE PO SCH ×2 (08:23→20:45)
[2022-12-01] MEDS: MELOXICAM 7.5 MG TABLET PO SCH (08:23)
[2022-12-01] MEDS: LEVOTHYROXINE 88 MCG TABLET PO SCH (08:23)
[2022-12-01] MEDS: amLODIPine 10 MG TABLET PO SCH (08:24)
[2022-12-01] MEDS: VENLAFAXINE 75 MG CAP.XL.24H PO SCH (08:24)
[2022-12-01 08:31] LABS: Basophils # (Auto) 0.04 K/mcL (0.00-0.30); Basophils % (Auto) 0.3 % (0.0-2.0); Eosinophils # (Auto) 0.07 K/mcL (0.00-0.70); Eosinophils % (Auto) 0.5 % (0.0-7.0); Hematocrit 44.2 % (34.1-44.9); Lymphocytes # (Auto) 0.96 K/mcL (1.50-4.80); Lymphocytes % (Auto) 6.6 % (15.5-49.0); Mean Cell Volume 97.6 fL (80.0-100.0); Mean Corpuscular HGB Conc 31.7 g/dL (31.0-36.0); Mean Platelet Volume 10.1 fL (8.8-12.5); Monocytes # (Auto) 1.67 K/mcL (0.10-0.90); Monocytes % (Auto) 11.5 % (1.0-12.0); Neutrophils % (Auto) 80.7 % (38.0-78.0); Platelet Count 283 K/mcL (140-440); RBC 4.53 M/mcL (3.59-5.38); Red Cell Distribution Width 13.8 % (11.5-14.5); WBC 14.6 K/mcL (4.5-11.0)
[2022-12-01] MEDS: cefTRIAXone 1 GM VIAL IV SCH (09:05)
[2022-12-01 09:41] LABS: ALT/SGPT 8 U/L (<40); AST/SGOT 20 U/L (<32); Albumin 3.1 gm/dL (3.2-5.2); Albumin/Globulin Ratio 0.9 (1.0-2.3); Alkaline Phosphatase 143 U/L (39-117); Blood Urea Nitrogen 19 mg/dL (8-23); Carbon Dioxide 22 mmol/L (22-30); Chloride 104 mmol/L (96-108); Globulin 3.4 gm/dL (2.2-3.7); Glomerular Filtration Rate 32; Glucose 119 mg/dL (70-105)
--- NOTE | 2022-12-01 13:35 | Internal Med Progress Note ---
SUBJECTIVE Subjective Patient information: Note initiated : 12/01/22 at 1:30 pm Service Date, if different from initiated Date: [] Patient: Adriane Olivares 82 y/o F admitted on 11/29/22 for abdominal pain. Chief Complaint: [] Interval history: Ms. Olivares is a 82 year old F history of essential hypertensions, dyslipidemia, depression, obstructive sleep apnea on CPAP, hypothyroidism, presenting with abdominal pain. She had a history of recurrent urinary tract infections as well as kidney stone. She received the procedures of left lithotripsy by Dr. Sage urologist 2 days ago on 11/27/22. During her follow-up with Dr. Sage today, he told patients that she was septic and prompted her to come to our ED for further evaluations. Patient is committing of left lower quadrant abdominal pain since the procedures. She said that right now the pain is deep and moderate at rest but it was exacerbated by urinations. She denies any back pain. She is also complaining of dysuria. She denies any fever chills or diaphoresis. She denies any GI upset such as nausea vomiting or diarrhea. Vital signs significant for tachycardia with heart rate up to the 1 teens at ED presentations. Labs significant for leukocytosis with WBC 16.3. Serum lactic acid 0.7. Procalcitonin level 0.25. Serum creatinine level 3.1 with baseline 1.0. UA suggesting the presence of urinary tract infections. Chest x-ray unremarkable. Abdomen pelvis CT showing fragmented stones in the lower portion of the left kidney without evidence of hydronephrosis. Admission request is called for urinary tract infections with sepsis as well as acute kidney injury. 11/30: Low-grade fever Tmax 37.3 overnight. WBC went down from 16.3 at time of admissions to 12.4 this morning. Serum creatinine level 2.9, down from 3.1 at time of admission. Blood and urine culture no growth today. Patient is continue to have pink urine. She is complaining of mild to moderate left-sided abdominal pain. She denies any nausea or vomiting. She denies any fever or chills. She is complaining of dysuria. Continue Rocephin for urinary tract infections while monitoring culture results. Continue normal saline at 100 cc/h while monitoring kidney functions. 12/01: Low grade fever 37.3 overnight. WBC went up from 12.4 to 14.6. Urine culture: Enterococcus species; blood culture no growth to date. Patient is currently on room air. Patient had 1 episode of the pink urine overnight otherwise no reported hematuria. She denies any dysuria. Patient is feeling a lot stronger today and denies any subjective fever chills or diaphoresis. Continue Rocephin for urinary tract infections while monitoring culture results. Saline lock. Keep patient in house for at least one more day. Constitutional Vitals: Vital Signs Temp Pulse Resp BP Pulse Ox O2 Del Method O2 Flow Rate 37.2 C 85 16 128/72 98 Room Air 1 12/01/22 11:57 12/01/22 11:57 12/01/22 11:57 12/01/22 11:57 12/01/22 11:57 12/01/22 11:57 12/01/22 03:59 Period Temp Pulse Resp BP Sys/De [place] Cruz Pulse Ox O2 Del Method O2 Flow Rate Last 24 Hr 36.6 C-37.3 C 85-107 16-20 128-154/59-88 96-100 Nasal Cannula- Room Air 1 Intake and Output 12/01/22 12/01/22 12/01/22 03:59 11:59 19:59 Intake Total 1570 Output Total 479 101 Balance -479 1469 Intake & Output: Intake & Output 12/01/22 12/01/22 12/01/22 03:59 11:59 19:59 Intake Total 1570 Output Total 479 101 Balance -479 1469 Intake: IV 990 Sodium Chloride 0.9% 1,000 ml @ 990 100 mls/hr IV .Q10H [facility] Rx#: [id number] Oral 580 Output: Void Amount 475 100 # of times incontinent of urine 4 1 Other: Urine Appearance Clear Urine Color Yellow Yellow # Voids 2 1 Head Head exam: Present atraumatic and normal inspection Eye Eye exam: Present normal appearance ENT ENT exam: Present mucous membranes moist, normal exam and normal external ear exam Neck Neck exam: Present normal inspection Respiratory Respiratory exam: Present normal respiratory exam Cardiovascular Cardiovascular exam: Present normal rate and rhythm GI/Abdominal GI/Abdominal exam: Present normal bowel sounds Back Exam Back exam: Present normal inspection Neurological Exam Neurological exam: Present alert and oriented X3 Skin Skin exam: Present intact and warm OBJ DATA Labs 12/01/22 06:26 12/01/22 06:25 Labs: Abnormal Lab Results 12/01/22 12/01/22 11/30/22 06:26 06:25 08:00 WBC 14.6 H MCHC Immature Gran % (Auto) Neut % (Auto) 80.7 H Lymph % (Auto) 6.6 L [place] % (Auto) Lymph # (Auto) 0.96 L Harvey # (Auto) 1.67 H Immature Gran # 0.06 H Absolute Neutrophils 11.76 H POC VBG pH POC VBG pCO2 at Temp POC VBG pO2 POC Venous O2 Sat BUN Creatinine 1.5 H Glucose 119 H Calcium Alkaline Phosphatase 143 H Albumin 3.1 L Albumin/Globulin Ratio 0.9 L Procalcitonin Urine Appearance Hazy A Urine Protein 100 A Urine Ketones 20 A Urine Occult Blood >=1.0 A Ur Leukocyte Esterase 250 A Urine RBC > 182 H Urine WBC 55 H Urine Mucus Few A 11/30/22 11/30/22 11/29/22 05:41 05:41 12:42 WBC 12.4 H MCHC 30.7 L Immature Gran % (Auto) Neut % (Auto) Lymph % (Auto) 7.7 L Harvey % (Auto) 13.3 H Lymph # (Auto) 0.95 L Harvey # (Auto) 1.65 H Immature Gran # 0.06 H Absolute Neutrophils 9.57 H POC VBG pH 7.27 L POC VBG pCO2 at Temp 53.2 H POC VBG pO2 44 H POC Venous O2 Sat 73.0 H BUN 29 H Creatinine 2.9 H Glucose Calcium 8.2 L Alkaline Phosphatase 127 H Albumin Albumin/Globulin Ratio Procalcitonin Urine Appearance Urine Protein Urine Ketones Urine Occult Blood Ur Leukocyte Esterase Urine RBC Urine WBC Urine Mucus 11/29/22 11/29/22 11/29/22 12:32 10:40 10:40 WBC 16.3 H MCHC Immature Gran % (Auto) 0.6 H Neut % (Auto) 81.9 H Lymph % (Auto) 4.5 L Harvey % (Auto) 12.7 H Lymph # (Auto) 0.74 L Harvey # (Auto) 2.07 H Immature Gran # 0.10 H Absolute Neutrophils 13.34 H POC VBG pH POC VBG pCO2 at Temp POC VBG pO2 POC Venous O2 Sat BUN 28 H Creatinine 3.1 H Glucose 114 H Calcium 8.5 L Alkaline Phosphatase 134 H Albumin Albumin/Globulin Ratio Procalcitonin 0.25 H Urine Appearance Urine Protein Urine Ketones Urine Occult Blood Ur Leukocyte Esterase Urine RBC Urine WBC Urine Mucus Meds: Medications Acetaminophen (Acetaminophen 325 Mg Tablet) 650 mg PO Q6HP PRN; Protocol PRN Reason: Per Pain Protocol/Fever > 101 Last Admin: 11/30/22 21:25 Dose: 650 mg Albuterol/Ipratropium (Ipratropium/Albuterol 3 Ml Ampul.Neb) 3 ml NEB Q4HRT PRN PRN Reason: Wheezing Amlodipine Besylate (Amlodipine 10 Mg Tablet) 10 mg PO DAILY [facility] Last Admin: 12/01/22 08:24 Dose: 10 mg Calcium Carbonate/Glycine (Calcium (Oyster Shell) 500 Mg Tablet) 500 mg PO DAILY [facility] Last Admin: 12/01/22 08:23 Dose: 500 mg Ceftriaxone Sodium (Ceftriaxone 1 Gm Vial) 1 gm IV Q24H [facility] Last Admin: 12/01/22 09:05 Dose: 1 gm Docusate Sodium (Docusate Sodium 100 Mg Capsule) 100 mg PO BID [facility] Last Admin: 12/01/22 08:23 Dose: 100 mg Hydralazine HCl (Hydralazine 20 Mg/Ml Vial) 10 mg IV Q4-6HP PRN PRN Reason: Hypertension Sodium Chloride (Sodium Chloride 0.9%) 1,000 mls @ 100 mls/hr IV .Q10H [facility] Last Admin: 12/01/22 05:44 Dose: 100 mls/hr Levothyroxine Sodium (Levothyroxine 88 Mcg Tablet) 88 mcg PO QAMAC [facility] Last Admin: 12/01/22 08:23 Dose: 88 mcg Meloxicam (Meloxicam 7.5 Mg Tablet) 15 mg PO DAILY [facility] Last Admin: 12/01/22 08:23 Dose: 15 mg Morphine Sulfate (Morphine 4 Mg/Ml Vial) 4 mg IV Q4HP PRN; Protocol PRN Reason: Per Pain Protocol Ondansetron HCl (Ondansetron 4 Mg/2 Ml Vial) 4 mg IV Q6HP PRN PRN Reason: Nausea And Vomiting Oxycodone HCl (Oxycodone Hcl 5 Mg Tablet) 5 mg PO Q4HP PRN; Protocol PRN Reason: Per Pain Protocol Senna (Sennosides 1 Tablet) 2 tab PO HS [facility] Last Admin: 11/30/22 21:30 Dose: 2 tab Simvastatin (Simvastatin 20 Mg Tablet) 20 mg PO HS [facility] Last Admin: 11/30/22 21:24 Dose: 20 mg Sodium Chloride (0.9 % Sodium Chloride 10 Ml Syringe) 10 ml IV Q8 [facility] Last Admin: 12/01/22 05:44 Dose: Not Given Tramadol HCl (Tramadol 50 Mg Tablet) 75 mg PO Q6HP PRN PRN Reason: Pain Trazodone HCl (Trazodone Hcl 50 Mg Tablet) 25 mg PO HSP PRN PRN Reason: Insomnia Trazodone HCl (Trazodone Hcl 50 Mg Tablet) 50 mg PO QHS [facility] Last Admin: 11/30/22 21:25 Dose: 50 mg Venlafaxine HCl (Venlafaxine 75 Mg Cap.Xl.24h) 225 mg PO DAILY [facility] Last Admin: 12/01/22 08:24 Dose: 225 mg A/P Assessment and plan (1) Hypothyroidism: Status: Chronic Qualifiers: Hypothyroidism type: unspecified Qualified Code(s): E03.9 - Hypothyroidism, unspecified (2) Hypertension: Status: Chronic Qualifiers: Hypertension type: essential hypertension Qualified Code(s): I10 - Essential (primary) hypertension (3) Obstructive sleep apnea on CPAP: Status: Acute (4) Depression, major, recurrent, moderate: Status: Chronic (5) Hypercholesterolemia: Status: Chronic (6) Stage 2 acute kidney injury: Status: Acute (7) UTI (urinary tract infection): Status: Acute (8) Clinical sepsis: Status: Acute Narrative A/P Narrative: Assessment and Plans: 1. UTI with clinical sepsis: Inpatient med surg CT abdomen pelvis does not see any other complications such as obstructive stones, abscess, hydronephrosis Saline lock Serial lactic acid 0.7 Procalcitonin level 0.25 Blood culture, no growth to date Urine culture, Enterococcus species cbc w/ auto diff in the morning to trend WBC Rocephin 2. Stage 2 acute kidney injury: Avoid nephrotoxic agents and hold Lisinopril Saline lock CMP in the morning to trend kidney functions 3. Essential hypertension: Hold Lisinopril, do Amlodipine instead Hydralazine 10mg IV q4-6hr PRN SBP>=180 and/or DBP>=110mmHg 4. Hypercholesterolemia: Continue statin therapy 5. Hypothyroidism: Continue thyroid replacement therapy 6. Obstructive sleep apnea: Continue CPAP at night while sleeping 7. Depression: Venlafaxine GI ppx: not currently indicated DVT ppx: Heparin Code status: Full Prognosis: guarded Disposition: inpatient med surg Time Spent With Patient Time: Total time spent is greater than 50% in coordination of care (as documented) at patient's floor/unit and/or counseling patient: Subsequent: Total time with patient: 35 - 49 minutes QUALITY Stroke Symptom Onset Unknown: No VTE Deep Vein Thrombosis/Pulmonary Embolism Present on Admission: No
[2022-12-01] MEDS: SENNOSIDES 1 TABLET PO SCH (20:45)
[2022-12-01] MEDS: SIMVASTATIN 20 MG TABLET PO SCH (20:45)
[2022-12-01] MEDS: traZODone HCL 50 MG TABLET PO SCH (20:45)
[2022-12-02] MEDS: ACETAMINOPHEN 325 MG TABLET PO PRN (03:32)
[2022-12-02] MEDS: 0.9 % SODIUM CHLORIDE 10 ML SYRINGE IV SCH (05:58)
[2022-12-02 07:15] LABS: Basophils # (Auto) 0.05 K/mcL (0.00-0.30); Basophils % (Auto) 0.4 % (0.0-2.0); Eosinophils # (Auto) 0.19 K/mcL (0.00-0.70); Eosinophils % (Auto) 1.5 % (0.0-7.0); Hematocrit 42.9 % (34.1-44.9); Hemoglobin 13.7 g/dL (11.2-15.7); Lymphocytes # (Auto) 1.15 K/mcL (1.50-4.80); Lymphocytes % (Auto) 9.4 % (15.5-49.0); Mean Cell Volume 94.9 fL (80.0-100.0); Mean Corpuscular HGB Conc 31.9 g/dL (31.0-36.0); Mean Platelet Volume 9.7 fL (8.8-12.5); Monocytes # (Auto) 1.42 K/mcL (0.10-0.90); Monocytes % (Auto) 11.6 % (1.0-12.0); Neutrophils % (Auto) 76.9 % (38.0-78.0); Platelet Count 327 K/mcL (140-440); RBC 4.52 M/mcL (3.59-5.38); Red Cell Distribution Width 13.8 % (11.5-14.5); WBC 12.3 K/mcL (4.5-11.0)
[2022-12-02 07:41] LABS: ALT/SGPT 12 U/L (<40); AST/SGOT 22 U/L (<32); Albumin 3.2 gm/dL (3.2-5.2); Alkaline Phosphatase 136 U/L (39-117); Bilirubin,Total 0.6 mg/dL (0.1-1.0); Blood Urea Nitrogen 26 mg/dL (8-23); Calcium 8.8 mg/dL (8.6-10.4); Carbon Dioxide 25 mmol/L (22-30); Chloride 104 mmol/L (96-108); Globulin 3.2 gm/dL (2.2-3.7); Glomerular Filtration Rate 30; Glucose 119 mg/dL (70-105)
[2022-12-02] MEDS: CALCIUM (OYSTER SHELL) 500 MG TABLET PO SCH (08:19)
[2022-12-02] MEDS: LEVOTHYROXINE 88 MCG TABLET PO SCH (08:19)
[2022-12-02] MEDS: VENLAFAXINE 75 MG CAP.XL.24H PO SCH (08:19)
[2022-12-02] MEDS: MELOXICAM 7.5 MG TABLET PO SCH (08:19)
[2022-12-02] MEDS: amLODIPine 10 MG TABLET PO SCH (08:20)
[2022-12-02] MEDS: DOCUSATE SODIUM 100 MG CAPSULE PO SCH (08:20)
[2022-12-02] MEDS: cefTRIAXone 1 GM VIAL IV SCH (08:56)
--- NOTE | 2022-12-02 09:31 | Discharge Summary ---
Discharge Provider Provider IMPORTANT FOLLOW-UP INFORMATION FOR PCP: Patient information: Note initiated : 12/02/22 at 9:28 am Service Date, if different from initiated Date: [] Patient: Adriane Olivares 82 y/o F admitted on 11/29/22 for abdominal pain. Chief Complaint: [] Date of admission: 11/29/22 20:59 Discharge date: 12/02/22 Primary care physician: Juan Gonzalez MD Attending physician on admission: Bubba Pa Consults: 11/29/22 Consult to Physician [CONS] Stat Comment: Consulting Provider: Bubba Pa Reason For Exam: Physician to Consult Attending physician on discharge: Bubba Pa COURSE Hospital Course Hospital course: Ms. Olivares is a 82 year old F history of essential hypertensions, dyslipidemia, depression, obstructive sleep apnea on CPAP, hypothyroidism, presenting with abdominal pain. She had a history of recurrent urinary tract infections as well as kidney stone. She received the procedures of left lithotripsy by Dr. Sage urologist 2 days ago on 11/27/22. During her follow-up with Dr. Sage today, he told patients that she was septic and prompted her to come to our ED for further evaluations. Patient is committing of left lower quadrant abdominal pain since the procedures. She said that right now the pain is deep and moderate at rest but it was exacerbated by urinations. She denies any back pain. She is also complaining of dysuria. She denies any fever chills or diaphoresis. She denies any GI upset such as nausea vomiting or diarrhea. Vital signs significant for tachycardia with heart rate up to the 1 teens at ED presentations. Labs significant for leukocytosis with WBC 16.3. Serum lactic acid 0.7. Procalcitonin level 0.25. Serum creatinine level 3.1 with baseline 1.0. UA suggesting the presence of urinary tract infections. Chest x-ray unremarkable. Abdomen pelvis CT showing fragmented stones in the lower portion of the left kidney without evidence of hydronephrosis. Admission request is called for urinary tract infections with sepsis as well as acute kidney injury. 11/30: Low-grade fever Tmax 37.3 overnight. WBC went down from 16.3 at time of admissions to 12.4 this morning. Serum creatinine level 2.9, down from 3.1 at time of admission. Blood and urine culture no growth today. Patient is continue to have pink urine. She is complaining of mild to moderate left-sided abdominal pain. She denies any nausea or vomiting. She denies any fever or chills. She is complaining of dysuria. Continue Rocephin for urinary tract infections while monitoring culture results. Continue normal saline at 100 cc/h while monitoring kidney functions. 12/01: Low grade fever 37.3 overnight. WBC went up from 12.4 to 14.6. Urine culture: Enterococcus species; blood culture no growth to date. Patient is currently on room air. Patient had 1 episode of the pink urine overnight otherwise no reported hematuria. She denies any dysuria. Patient is feeling a lot stronger today and denies any subjective fever chills or diaphoresis. Continue Rocephin for urinary tract infections while monitoring culture results. Saline lock. Keep patient in house for at least one more day. 12/02: Discharged home with Rx sent to pharmacy. Follow up with PCP on 12/06/22. All questions were answered prior to patient being physically discharged. Discharge diagnosis: UTI Time Spent with Patient Time attestation: Total time spent providing and/or coordinating discharge services: Time spent: Less than 30 minutes EXAM Constitutional Vitals: Temp Pulse Resp BP Pulse Ox O2 Del Method O2 Flow Rate 37.0 C 108 H 16 146/93 97 Room Air 1 12/02/22 08:00 12/02/22 08:00 12/02/22 08:00 12/02/22 08:00 12/02/22 08:00 12/02/22 08:00 12/01/22 03:59 General appearance: cooperative and no acute distress Head Head exam: Present atraumatic and normocephalic Eye Eye exam: Present EOMI and PERRL ENT ENT exam: Present mucous membranes moist, normal exam and normal external ear exam Neck Neck exam: Present normal inspection; Absent lymphadenopathy, tenderness or thyromegaly Respiratory Respiratory exam: Absent accessory muscle use, respiratory distress or wheezes Cardiovascular Cardiovascular exam: Present normal rate and rhythm; Absent JVD GI/Abdominal GI/Abdominal exam: Present normal bowel sounds and soft; Absent organomegaly or tenderness Extremities Exam Extremities exam: Present full ROM, normal capillary refill and normal inspection; Absent tenderness Neurological Exam Neurological exam: Present alert, CN II-XII intact and oriented X3; Absent motor sensory deficit Psychiatric Psychiatric exam: Present normal affect and normal mood; Absent anxious or depressed Skin Skin exam: Present dry and intact Discharge Data Data Completed and Pending Labs on day of discharge: Labs from last 24 hours 12/02/22 12/02/22 12/01/22 05:36 05:36 06:25 WBC 12.3 H RBC 4.52 Hgb 13.7 Hct 42.9 MCV 94.9 MCH 30.3 MCHC 31.9 RDW 13.8 Plt Count 327 MPV 9.7 Immature Gran % (Auto) 0.2 Neut % (Auto) 76.9 Lymph % (Auto) 9.4 L [place] % (Auto) 11.6 Eos % (Auto) 1.5 Baso % (Auto) 0.4 Lymph # (Auto) 1.15 L [place] # (Auto) 1.42 H Eos # (Auto) 0.19 Baso # (Auto) 0.05 Immature Gran # 0.03 Absolute Neutrophils 9.42 H Sodium 140 140 Potassium 3.8 4.5 Chloride 104 104 Carbon Dioxide 25 22 Anion Gap 11.0 14.0 BUN 26 H 19 Creatinine 1.6 H 1.5 H GFR Calculation 30 32 Glucose 119 H 119 H Calcium 8.8 9.0 Total Bilirubin 0.6 1.0 AST 22 20 ALT 12 8 Alkaline Phosphatase 136 H 143 H Total Protein 6.4 6.5 Albumin 3.2 3.1 L Globulin 3.2 3.4 Albumin/Globulin Ratio 1.0 0.9 L Preliminary micro results at discharge 11/29/22 12:32 Blood Culture - Preliminary Blood 11/29/22 12:22 Blood Culture - Preliminary Blood 11/30/22 03:32 Urine Culture - Preliminary Urine - Clean Void Mid-Stream Enterococcus species Discharge Plan Patient/Caregiver Discharge Instructions Activity: increase activity as tolerated Diet: Regular Diet Prescriptions: New amoxicillin-pot clavulanate [Augmentin] 500-125 mg tablet 1 tab PO BID Qty: 14 0RF Continued (DME) cpap machine with supplies See Rx Instructions .Route .MEDSUPPLY Qty: 1 0RF Rx Instructions: As directed venlafaxine 225 mg tablet extended release 24hr 225 mg PO QDAY Qty: 90 1RF trazodone 50 mg tablet 50 mg PO QHS Qty: 90 1RF meloxicam 15 mg tablet 15 mg PO QDAY Qty: 90 1RF simvastatin 20 mg tablet 20 mg PO HS Qty: 90 3RF lisinopril 30 mg tablet 30 mg PO DAILY Qty: 90 2RF levothyroxine 88 mcg capsule 88 mcg PO QDAY calcium 500 mg Tablet 500 mg PO QDAY aspirin 81 mg Tablet,Delayed Release (Dr/Ec) 81 mg PO QDAY tramadol 50 mg tablet 75 mg PO Q6H PRN (Reason: pain) Qty: 20 0RF Discontinued nitrofurantoin monohyd/m-cryst [Macrobid] 100 mg capsule 100 mg PO Q12H 7 Days Qty: 14 0RF Rx Instructions: must administer with a meal/food Follow Up Plan Follow up with: Juan Gonzalez MD [Primary Care Provider] - Patient Disposition: Home, Self-Care Rehab Potential: Good I certify that the patient requires SNF services: No Overall status at discharge: patient is progressing back to baseline Discharge Orders: Discharge Order (Routine); Ordered 12/02/22 Ordered By: Bubba PEÑA VTE Deep Vein Thrombosis/Pulmonary Embolism Present on Admission: No
== END 2022-12-02 12:00 | disposition home or self-care (01) | DRG 872 ==
LOC: ED 10:04 → MEDSUR 20:59
PROVIDERS: ADMIT Internal Medicine; ATTEND Internal Medicine